=== PATIENT | female | born 1960 | race Caucasian/White ===

== ENCOUNTER 2023-10-11 01:24 | Emergency (ER) | payer OTHER ==
[2023-10-11 01:45] VITALS: BP 142/85; PULSE 67; RESP 16; TEMP 97.7; BMI 27.4
== END 2023-10-11 02:09 | disposition home or self-care (01) ==
LOC: FER 01:24
DX: R55 Syncope and collapse (principal)
CPT/HCPCS: 71045-TC-FY; 93005; 99284-25

== ENCOUNTER 2023-10-12 14:49 | Observation (INO) | payer OTHER ==
[2023-10-12 15:05] VITALS: BMI 27.4
[2023-10-12 17:11] LABS: BASO % 0.8 % (0-2.0); EOS % 2.5 % (0-4.5); HEMATOCRIT 41.5 % (32.4-45.2); HEMOGLOBIN 13.7 GM/dL (10.7-15.3); LYMPH % 21.8 % (8-40); MCH 29.6 pg (25.7-33.7); MCHC 32.9 g/dl (32.0-36.0); MEAN CELL VOLUME 89.7 fl (80-96); MEAN PLT VOLUME 8.2 fl (7.5-11.1); MONO % 7.1 % (3.8-10.2); NEUT % 67.8 % (42.8-82.8); PLATELET COUNT 270 10^3/uL (134-434); RBC 4.62 M/mm3 (3.60-5.2); RDW 13.4 % (11.6-15.6); WHITE BLOOD COUNT 7.6 K/mm3 (4.0-10.0)
[2023-10-12 17:16] LABS: INR 0.93 (0.83-1.09); PROTHROMBIN TIME (PATIENT) 10.5 SEC (9.7-13.0)
[2023-10-12 17:18] LABS: ACTIVATED PTT 35.3 SECONDS (25.2-36.5)
[2023-10-12 17:28] LABS: POTASSIUM 4.1 mmol/L (3.5-5.1)
[2023-10-12 17:30] LABS: CALCIUM 9.1 mg/dL (8.5-10.1)
[2023-10-12 17:31] LABS: ALBUMIN 3.7 g/dl (3.4-5.0); BLOOD UREA NITROGEN 15.5 mg/dL (7-18); MAGNESIUM 2.4 mg/dL (1.8-2.4)
[2023-10-12 17:34] LABS: CREATININE 0.8 mg/dL (0.55-1.3)
[2023-10-12 17:36] LABS: BILIRUBIN,TOTAL 0.6 mg/dL (0.2-1); TOT PROT 6.9 g/dl (6.4-8.2)
[2023-10-13 08:41] LABS: URINE APPEARANCE CLEAR; URINE BILIRUBIN NEGATIVE (NEGATIVE); URINE COLOR YELLOW; URINE GLUCOSE (UA) NEGATIVE (NEGATIVE); URINE KETONE NEGATIVE (NEGATIVE); URINE LEUK ESTERASE NEGATIVE (NEGATIVE); URINE NITRITE NEGATIVE (NEGATIVE); URINE PROTEIN NEGATIVE (NEGATIVE)
[2023-10-13 08:42] LABS: METHADONE, UR NEGATIVE (NEGATIVE); OPIATES, URI NEGATIVE (NEGATIVE); PHENCYCLIDINE,URINE NEGATIVE (NEGATIVE); URINE BARBITURATES NEGATIVE (NEGATIVE); URINE BENZODIAZEPINES NEGATIVE (NEGATIVE)
[2023-10-13 08:44] LABS: COCAINE, UR NEGATIVE (NEGATIVE); URINE AMPHETAMINES NEGATIVE (NEGATIVE)
[2023-10-13 08:50] LABS: HEMATOCRIT 43.8 % (32.4-45.2); HEMOGLOBIN 14.6 GM/dL (10.7-15.3); MCH 29.9 pg (25.7-33.7); MCHC 33.3 g/dl (32.0-36.0); MEAN CELL VOLUME 89.7 fl (80-96); MEAN PLT VOLUME 8.7 fl (7.5-11.1); PLATELET COUNT 275 10^3/uL (134-434); RBC 4.88 M/mm3 (3.60-5.2); RDW 13.2 % (11.6-15.6); WHITE BLOOD COUNT 6.7 K/mm3 (4.0-10.0)
[2023-10-13 09:13] LABS: POTASSIUM 4.4 mmol/L (3.5-5.1)
[2023-10-13 09:20] LABS: CALCIUM 8.9 mg/dL (8.5-10.1)
[2023-10-13 09:21] LABS: CREATININE 0.7 mg/dL (0.55-1.3); PHOSPHOROUS 3.4 mg/dL (2.5-4.9)
[2023-10-13 09:22] LABS: HDL CHOLESTEROL 96 mg/dL (40-60)
[2023-10-13 09:23] LABS: BLOOD UREA NITROGEN 14.3 mg/dL (7-18); LDL CHOLESTEROL (ONLY SJRH) 161 mg/dL (5-100); MAGNESIUM 2.2 mg/dL (1.8-2.4)
[2023-10-13 09:24] LABS: CHOLESTEROL 282 mg/dL (50-200)
[2023-10-13] MEDS: ENOXAPARIN NA (PORCINE) 40 MG/0.4 ML DISP.SYRIN SQ SCH (10:31)
[2023-10-13] MEDS: ATORVASTATIN CA 20 MG TABLET (FP) PO SCH (21:17)
[2023-10-14 03:49] VITALS: RESP 18
[2023-10-14 08:00] LABS: HEMATOCRIT 42.1 % (32.4-45.2); HEMOGLOBIN 13.8 GM/dL (10.7-15.3); MCH 29.7 pg (25.7-33.7); MCHC 32.7 g/dl (32.0-36.0); MEAN CELL VOLUME 90.9 fl (80-96); MEAN PLT VOLUME 8.6 fl (7.5-11.1); PLATELET COUNT 265 10^3/uL (134-434); RBC 4.63 M/mm3 (3.60-5.2); RDW 13.1 % (11.6-15.6); WHITE BLOOD COUNT 6.6 K/mm3 (4.0-10.0)
[2023-10-14 08:17] LABS: POTASSIUM 4.5 mmol/L (3.5-5.1)
[2023-10-14 08:27] LABS: ALBUMIN 3.1 g/dl (3.4-5.0); BLOOD UREA NITROGEN 17.6 mg/dL (7-18); CALCIUM 8.8 mg/dL (8.5-10.1); MAGNESIUM 2.1 mg/dL (1.8-2.4)
[2023-10-14 08:31] LABS: CREATININE 0.7 mg/dL (0.55-1.3); PHOSPHOROUS 3.4 mg/dL (2.5-4.9)
[2023-10-14 08:32] LABS: BILIRUBIN,TOTAL 0.7 mg/dL (0.2-1); TOT PROT 6.7 g/dl (6.4-8.2)
[2023-10-14 12:00] VITALS: BP 112/70; PULSE 66; TEMP 98.2
== END 2023-10-14 11:08 | disposition home or self-care (01) ==
LOC: JER 14:49 → UNDOADMOB 18:39 → JERBED 18:39 → INTOOBSV 18:39 → JERBED 20:37 → J4W 20:37 → JERBED 10-13 09:13
PROVIDERS: ADMIT Internal Medicine; ATTEND Internal Medicine
PROC: 3E023GC Introduction of Other Therapeutic Substance into Muscle, Percutaneous Approach (ICD-10-PCS; principal; 2023-10-13)
DX: R55 Syncope and collapse (principal); R94.31 Abnormal electrocardiogram [ECG] [EKG]; E78.5 Hyperlipidemia, unspecified; M19.90 Unspecified osteoarthritis, unspecified site; R42 Dizziness and giddiness
CPT/HCPCS: 36415; 70450-TC; 71046-TC-FY; 80048; 80053; 80061; 80307; 81003; 83735; 84100; 84439; 84443; 84484; 85025; 85027; 85610; 85730; 87635; 93005; 93010; 93306-TC; 93880-TC; 96372; 99285-25; G0378